=== PATIENT | female | born 1960 | race Caucasian/White ===

== ENCOUNTER 2019-09-09 13:03 | Outpatient (CLI) | payer MEDICARE, SELFPAY ==
--- NOTE | 2019-09-09 13:14 | MR_ITS ---
WS: [id number] MRI LUMBAR SPINE NONCONTRAST TECHNIQUE: Sagittal T1, T2 and STIR imaging. Axial T1 and T2 imaging. CLINICAL INFORMATION: LOW BACK PAIN COMPARISON: None. FINDINGS: Mild lumbar curve. No acute compression. Mild disc bulging worse L4-L5 and L5-S1. Tiny annular fissur e L5-S1. L1-L2: Normal. L2-L3: No significant disc bulging. Spinal canal and foramen are patent. Mild facet arthropathy. L3-L4: Mild annular bulging with slight narrowing of the subarticular recess bilaterally. Moderate fa cet arthropathy. Spinal canal and foramen are patent. L4-L5: Mild annular bulging with slight effacement of the ventral thecal sac. Mild central canal sten osis with narrowing of the subarticular recess bilaterally. Mild left and no significant right forami nal narrowing. Moderate facet arthropathy. L5-S1: Small left pericentral protrusion with encroachment traversing left S1 nerve root. Spinal bonnie l and foramen are patent. Mild facet arthropathy. Visualized pelvic bony structures: Normal. Paravertebral soft tissues: Normal MR/MR lumbar spine wo con* [id number] IMPRESSION: 1. Mild lumbar curve. No acute compression. No high-grade central canal stenos is. 2. Annular bulging L4-5 with mild central canal stenosis and narrowing of the left subarticular recess. Mild left foraminal narrowing at this level. 3. Tiny left pericentral protrusion L5-S1 slightly encroaches on the traversin g left S1 nerve root. 4. Mild annular bulging L3-4 with slight effacement of ventral thecal sac. 5. Moderate facet arthropathy L3-L5.
--- NOTE | 2019-09-09 13:16 | XR_ITS ---
WS: [id number] HIPS BILATERAL TECHNIQUE: 5 views bilateral hips Including pelvis CLINICAL INFORMATION: PAIN IN LEFT AND RIGHT HIP COMPARISON: June 04, 2017 FINDINGS: Mild degenerative arthritis bilateral hips with joint space narrowing. No acute fractures. Surgical c lips in the pelvis. Vascular calcification. XR/XR hip BI 3-4V wo/[place] [id number] IMPRESSION: Mild degenerative arthritis both hips. No acute fractures.
--- NOTE | 2019-09-09 13:16 | XR_ITS ---
WS: [id number] LUMBAR SPINE FLEXION AND EXTENSION TECHNIQUE: 3 views of the lumbar spine: Lateral neutral, flexion, and extension views. CLINICAL INFORMATION: LOW BACK PAIN COMPARISON: None. FINDINGS: Grade 1 anterolisthesis L5 on S1 measuring 3.5 mm. Slight anterolisthesis L4 on L5 measuring 2.2 mm. Disc space narrowing worse at L4-5. No instability on flexion-extension. Moderate facet arthropathy L 4-L5 and L5-S1. Aortic calcification. XR/XR lumbar spine f/e only [id number] IMPRESSION: 1. Grade 1 anterolisthesis L5 on S1 measuring 3.5 mm. Slight anterolisthesis L 4 on L5 measuring 2.2 mm. 2. No instability on flexion-extension.
== END 2019-09-09 13:04 | disposition home or self-care (01) ==
PROVIDERS: Family Provider Internal Medicine; PCP Internal Medicine; Visit Provider Nurse Practitioner
DX: M25.552 Pain in left hip (principal); M25.551 Pain in right hip; M16.0 Bilateral primary osteoarthritis of hip; M48.061 Spinal stenosis, lumbar region without neurogenic claudication; M51.27 Other intervertebral disc displacement, lumbosacral region; M47.816 Spondylosis without myelopathy or radiculopathy, lumbar region
CPT/HCPCS: 72120; 72148; 73522

== ENCOUNTER 2019-11-12 14:51 | Outpatient (CLI) | payer MEDICARE, SELFPAY ==
--- NOTE | 2019-11-12 | XR_ITS ---
WS: [id number] Left hip, AP and frog leg, 11/12/2019 Clinical Data: PAIN LEFT HIP Comparison: Bilateral hips, 09/09/2019. Findings: No fractures or dislocations are seen. The hip joint is intact. The soft tissues are not remarkable. The adjacent pelvis is normal. No erosion, sclerosis or significant narrowing of the left hip is seen. There are clips from pelvic s urgery present. XR/XR hip LT 2-3V wo/w pel* [id number] Impression: Negative left hip.
== END 2019-11-12 14:52 | disposition home or self-care (01) ==
LOC: RADWPI 14:55
PROVIDERS: Family Provider Internal Medicine; PCP Internal Medicine; Visit Provider Anesthesiology Pain Medicine
DX: M25.552 Pain in left hip (principal)
CPT/HCPCS: 73502

== ENCOUNTER 2019-12-28 11:58 | Outpatient (CLI) | payer MEDICARE, SELFPAY ==
--- NOTE | 2019-12-28 12:10 | MM_ITS ---
WS: [id number] BILATERAL SCREENING DIGITAL MAMMOGRAM WITH CAD HISTORY: SCREENING COMPARISON: 11/07/2018 and 10/22/2017 Bilateral CC and MLO views submitted. Computer aided detection analyzed. Breast composition: There are scattered areas of fibroglandular density. No suspicious masses, microc alcifications or architectural distortion. Benign calcifications. No change in the overall parenchyma l pattern. MM/[place] [id number] IMPRESSION: BI-RADS: 2-Benign FOLLOW UP: 1 Year Follow-up
== END 2019-12-28 11:59 | disposition home or self-care (01) ==
LOC: RADSHAW 12:04
PROVIDERS: PCP Internal Medicine; Visit Provider Internal Medicine
DX: Z12.31 Encounter for screening mammogram for malignant neoplasm of breast (principal)
CPT/HCPCS: 77067

== ENCOUNTER → 2020-09-22 14:02 | Outpatient (BNVA) | payer MEDICARE, SELFPAY | PROVIDERS: PCP Internal Medicine; Visit Provider Internal Medicine | DX: M19.90 Unspecified osteoarthritis, unspecified site (principal); L40.9 Psoriasis, unspecified; M20.11 Hallux valgus (acquired), right foot; Z87.891 Personal history of nicotine dependence | CPT/HCPCS: 99203; 99204 ==

== ENCOUNTER 2020-09-26 13:35 | Outpatient (CLI) | payer MEDICARE, SELFPAY ==
--- NOTE | 2020-09-26 13:46 | XRR_ITS ---
PROCEDURE INFORMATION: Exam: XR Bilateral Sacroiliac Joints Exam date and time: 09/26/2020 1:46 PM Age: 60 years old Clinical indication: Pain and condition or disease; Other: Unspecified osteoarthritis, poriasis; Pain in coccyx area; Additional info: L40.9 - psoriasis, unspecified TECHNIQUE: Imaging protocol: XR Bilateral XR of the sacroiliac joints. Views: AP inlet, bilateral oblique; 3 views. COMPARISON: CR XR hip LT 2-3V wo/w pel* [id number] 11/12/2019 3:05 PM FINDINGS: Bones/joints: Normal. No acute fracture. Soft tissues: Normal. Gastrointestinal tract: Bilateral lower pelvic bowel surgical clips. XR/XR sacroiliac jts m 3V [id number] IMPRESSION: No acute findings.
--- NOTE | 2020-09-26 13:46 | XRR_ITS ---
PROCEDURE INFORMATION: Exam: XR Right Hand Exam date and time: 09/26/2020 1:46 PM Age: 60 years old Clinical indication: Pain and condition or disease; Osteoarthritis; Hand; Bilateral; Additional info: M19.90 - unspecified osteoarthritis, unspecified site TECHNIQUE: Imaging protocol: XR Right hand. Views: Frontal and lateral, 2 views. COMPARISON: No relevant prior studies available. FINDINGS: Bones/joints: Normal. Soft tissues: Normal. XR/XR hand RT 2V [id number] IMPRESSION: No acute findings.
--- NOTE | 2020-09-26 13:46 | XRR_ITS ---
PROCEDURE INFORMATION: Exam: XR Lumbosacral Spine Exam date and time: 09/26/2020 1:46 PM Age: 60 years old Clinical indication: Pain and condition or disease; Other: Unspecified osteoarthritis; Low back pain; Additional info: M19.90 - unspecified osteoarthritis, unspecified site TECHNIQUE: Imaging protocol: XR of the lumbosacral spine. Views: 3 views. Other technique: AP, lateral and spot lateral views of the lumbar spine are submitted. COMPARISON: CR XR lumbar spine f/e only [id number] 09/09/2019 2:04 PM FINDINGS: Bones/joints: Severe left L4-L5 disc height loss, endplate sclerosis. Slight L4-L5 anterolisthesis. Bilateral L4-L5 and L5-S1, right L3-L4 lumbar facet primary osteoarthritis. Moderate L4-L5 disc height loss, 2.2 mm anterolisthesis. Slight leftward lumbar spinal curvature. Soft tissues: Bilateral lower pelvic bowel surgical clips. Vasculature: Moderate aortic and bilateral iliac artery atherosclerotic calcifications without evidence of aneurysm. XR/XR lumbar spine 2-3V* [id number] IMPRESSION: 1. Degenerative changes as above. 2. No acute lumbar spinal bony abnormality identified.
--- NOTE | 2020-09-26 13:46 | XRR_ITS ---
PROCEDURE INFORMATION: Exam: XR Left Hand Exam date and time: 09/26/2020 1:46 PM Age: 60 years old Clinical indication: Pain and condition or disease; Osteoarthritis; Hand; Bilateral; Prior surgery; Surgery type: Lt thumb trigger finger; Additional info: M19.90 - unspecified osteoarthritis, unspecified site TECHNIQUE: Imaging protocol: XR Left hand. Views: Frontal and lateral, 2 views. COMPARISON: No relevant prior studies available. FINDINGS: Bones/joints: Normal. Soft tissues: Normal. XR/XR hand LT 2V [id number] IMPRESSION: No acute findings.
[2020-09-26 14:21] LABS: Basophils # 0.1 10^3/uL (0.0-0.1); Basophils % 0.8 %; Eosinophils # 0.1 10^3/uL (0.0-0.8); Eosinophils % 0.9 %; Hematocrit 38.2 % (37.0-47.0); Hemoglobin 12.8 g/dL (11.5-15.3); Lymphocytes # 1.3 10^3/uL (0.8-4.8); Lymphocytes % 16.8 %; Mean Corpuscular HGB Conc 33.5 g/dL (30.0-36.0); Mean Corpuscular Volume 92.5 fL (81-99); Monocytes # 0.2 10^3/uL (0.2-0.9); Monocytes % 2.9 %; Neutrophils # 6.16 10^3/uL (1.8-7.7); Neutrophils % 78.3 %; Nucleated Red Blood Cells % 0 %; Platelet Count 218 10^3/cmm (130-400); Red Blood Count 4.13 10^6/uL (4.1-5.3); Red Cell Distribution Width 12.9 % (12.1-15.1); White Blood Count 7.9 10^3/uL (4.0-10.0)
[2020-09-26 14:39] LABS: Alanine Aminotransferase 9 U/L (0-33); Albumin Level 4.2 g/dL (3.5-5.2); Alkaline Phosphatase 69 IU/L (35-105); Anion Gap 14.6 (5-19); Aspartate Amino Transferase 13 U/L (0-32); Blood Urea Nitrogen 8 mg/dL (8-23); C Reactive Protein 1.5 mg/L (0.0-4.9); Calcium 8.9 mg/dL (8.5-10.5); Carbon Dioxide 26 mmol/L (22-29); Chloride 92 mmol/L (98-107); Globulin 1.9 g/dL (1.3-4.6); Glomerular Filtration Rate 85.1 mL/min (90-130); Glucose 275 mg/dL (65-115); Osmolality Calculated 274 mOsm/kg (285-295); Potassium 4.6 mmol/L (3.5-5.1); Sodium 128 mmol/L (136-145); Total Bilirubin 0.3 mg/dL (0.15-1.2); Total Protein 6.1 g/dL (6.6-8.7); Uric Acid 1.6 mg/dL (2.4-5.7)
[2020-09-26 14:57] LABS: Ferritin 31 ng/mL (15-150)
[2020-09-26 14:59] LABS: Rheumatoid Factor < 10.0 IU/mL (0-14)
[2020-09-26 15:00] LABS: Erythrocyte Sedimentation Rate 12 mm/hr (0-15)
[2020-09-26 16:12] LABS: Hepatitis B Core AB, Total Non-Reactive (Nonreactive); Hepatitis B Surface Antigen Non-Reactive (Nonreactive); Hepatitis C Virus Antibody Non-Reactive (Nonreactive)
[2020-09-27 14:36] LABS: Cyclic Citrullinated Peptide <16 UNITS
== END 2020-09-26 13:36 | disposition home or self-care (01) ==
PROVIDERS: PCP Internal Medicine; Visit Provider Internal Medicine
DX: M19.90 Unspecified osteoarthritis, unspecified site (principal); L40.9 Psoriasis, unspecified; Z11.59 Encounter for screening for other viral diseases
CPT/HCPCS: 36415; 72100; 72202; 73120; 80053; 82728; 84550; 85025; 85651; 86140; 86431; 86704; 86803; 87340

== ENCOUNTER 2020-10-26 13:28 | Outpatient (CLI) | payer MEDICARE, SELFPAY ==
--- NOTE | 2020-10-26 13:32 | MR_ITS ---
WS: [id number] MR OF THE RIGHT FOOT WITHOUT GADOLINIUM ENHANCEMENT. INDICATION: Chronic right foot pain TECHNIQUE: Sagittal PD, sagittal T1, and sagittal STIR imaging. Axial T1 STIR and PD imaging. Axial T 2 imaging. Coronal PD and T2 imaging. FINDINGS: Normal ankle mortise. Normal medial and lateral malleolus. No acute avulsion fractures. Nor mal talar dome. No evidence of avascular necrosis. Normal talocalcaneal articulation. Tiny plantar ca lcaneal spur. Normal plantar aponeurosis. Mild degenerative edema at the sinus tarsi. Normal cuboid. Base of fifth metatarsal is normal. Degenerative arthritis at the navicular and tarsal bones. Subchon dral cystic change involving the tarsal bones. Mild degenerative arthritis at the TMT joints. Degener ative arthritis at the first MTP joint with subchondral cystic change and mild bunion deformity. Distal Achilles is normal in appearance. Normal peroneal longus and brevis. Normal extensor and flexo r compartment tendons. Tenosynovitis involving the flexor digitorum longus and flexor hallucis longus . MR/MR foot RT wo con* [id number] IMPRESSION: 1. Normal ankle mortise. Normal talar dome. No avascular necrosis. 2. Normal distal Achilles. Tiny plantar calcaneal spur. 3. Mild bunion deformity with degenerative subchondral cystic change first MTP . 4. Moderate degenerative arthritis with subchondral edema and cystic change in volving the tarsal bones 5. Normal peroneal longus and brevis. 6. Tenosynovitis involving the flexor compartment tendons described above. 7. Normal plantar aponeurosis with tiny plantar calcaneal spur.
== END 2020-10-26 13:29 | disposition home or self-care (01) ==
LOC: RADSHAW 13:30
PROVIDERS: PCP Internal Medicine; Visit Provider Internal Medicine
DX: M19.90 Unspecified osteoarthritis, unspecified site (principal)
CPT/HCPCS: 73718

== ENCOUNTER 2021-03-27 10:16 | Outpatient (CLI) | payer MEDICARE, SELFPAY ==
--- NOTE | 2021-03-27 10:40 | MM_ITS ---
WS: [id number] Bilateral screening digital mammogram, 03/27/2021 Clinical Data: SCREEN Comparison: 12/28/2019, 11/07/2018, 10/22/2017, 08/23/2016, 08/22/2015, 08/18/2014. Findings: The breast parenchymal pattern shows fibroglandular tissue No spiculated masses or clustered calcific ations are seen. There are no secondary signs of carcinoma. There is a mole marker on the left breast . There are lymph nodes in both axilla. MM/[place] [id number] Impression: 1. Negative bilateral mammogram unchanged. 2. Recommend annual screening mammograms. BIRADS: 1-Negative FOLLOW UP: 1 Year Follow-up The CAD dead mail checker was used.
== END 2021-03-27 10:17 | disposition home or self-care (01) ==
LOC: RADSHAW 10:20
PROVIDERS: PCP Internal Medicine; Visit Provider Internal Medicine
DX: Z12.31 Encounter for screening mammogram for malignant neoplasm of breast (principal)
CPT/HCPCS: 77067

== ENCOUNTER → 2021-08-15 09:26 | Outpatient (BNVA) | payer MEDICARE, SELFPAY | PROVIDERS: PCP Internal Medicine; Visit Provider Podiatrist Foot & Ankle Surgery | DX: M21.41 Flat foot [pes planus] (acquired), right foot (principal); M21.42 Flat foot [pes planus] (acquired), left foot; M21.619 Bunion of unspecified foot; M20.41 Other hammer toe(s) (acquired), right foot; M20.42 Other hammer toe(s) (acquired), left foot; L60.3 Nail dystrophy; E11.42 Type 2 diabetes mellitus with diabetic polyneuropathy | CPT/HCPCS: 99214 ==

== ENCOUNTER 2021-08-29 09:10 | Outpatient (CLI) | payer MEDICARE, SELFPAY ==
--- NOTE | 2021-08-29 09:31 | MR_ITS ---
WS: [id number] MRI LEFT KNEE NONCONTRAST TECHNIQUE: Axial PD, coronal PD fat sat, coronal PD, sagittal PD, and sagittal PD fat-sat images obta ined. CLINICAL INFORMATION: DERANGEMENT L KNEE INTERNAL COMPARISON: None. FINDINGS: Distal quadriceps and patella tendons are intact. Hypertrophic patella. Normal ACL and PCL. Moderate tricompartmental arthritis. Normal lateral meniscus. Normal medial meniscus. Mild chronic thinning of the meniscus. No acute appearing meniscal tears. Subchondral cystic change along the dorsal intercondylar notch in the tibia near the PCL insertion. N ormal bone marrow signal in the tibial plateau and femoral condyles. Normal medial and lateral collat eral ligaments. Normal popliteus. Advanced chondromalacia patella. Subchondral edema. Chondromalacia worse involving the medial patella facet. Normal medial and lateral collateral ligaments. Normal popl iteal fossa. Small suprapatellar effusion. MR/MR knee LT wo con* [id number] IMPRESSION: 1. Normal ACL and PCL. 2. Moderate tricompartmental arthritis with chondromalacia worse involving the lateral joint compartment and patella. 3. Subchondral cystic change involving the ACL insertion on the tibia. 4. Mild chronic thinning of the medial and lateral meniscus. No acute appearin g meniscal tears. 5. Normal medial and lateral collateral ligaments. 6. Advanced chondromalacia patella with subchondral edema. This is worse invol ving the medial patella facet. Outbridge grading: grade III: partial-thickness cartilage loss with focal ulcer ation
== END 2021-08-29 09:11 | disposition home or self-care (01) ==
PROVIDERS: PCP Internal Medicine; Visit Provider Internal Medicine
DX: M23.92 Unspecified internal derangement of left knee (principal)
CPT/HCPCS: 73721

== ENCOUNTER → 2021-09-21 09:04 | Outpatient (BNVA) | payer MEDICARE, SELFPAY | PROVIDERS: PCP Internal Medicine; Visit Provider Podiatrist Foot & Ankle Surgery | DX: E11.42 Type 2 diabetes mellitus with diabetic polyneuropathy (principal); L60.3 Nail dystrophy; L60.0 Ingrowing nail; M79.671 Pain in right foot; M79.672 Pain in left foot; L60.8 Other nail disorders | CPT/HCPCS: 99214 ==

== ENCOUNTER → 2022-01-31 13:57 | Outpatient (BNVA) | payer MEDICARE, SELFPAY | PROVIDERS: PCP Internal Medicine; Visit Provider Internal Medicine | DX: M19.90 Unspecified osteoarthritis, unspecified site (principal); E11.42 Type 2 diabetes mellitus with diabetic polyneuropathy; Z79.4 Long term (current) use of insulin | CPT/HCPCS: 20610; 99213; J3301 ==

== ENCOUNTER 2022-06-04 15:15 | Outpatient (CLI) | payer MEDICARE, SELFPAY ==
[2022-06-04 15:43] LABS: Basophils # 0.1 10^3/uL (0.0-0.1); Basophils % 0.8 %; Eosinophils # 0.4 10^3/uL (0.0-0.8); Eosinophils % 5.1 %; Hematocrit 36.1 % (37.0-47.0); Hemoglobin 12.1 g/dL (11.5-15.3); Lymphocytes # 2.1 10^3/uL (0.8-4.8); Lymphocytes % 23.6 %; Mean Corpuscular HGB Conc 33.5 g/dL (30.0-36.0); Mean Corpuscular Hemoglobin 31.5 pg (28.0-34.0); Mean Platelet Volume 11.4 fL (7.4-10.4); Monocytes # 0.4 10^3/uL (0.2-0.9); Monocytes % 4.6 %; Neutrophils # 5.72 10^3/uL (1.8-7.7); Neutrophils % 65.7 %; Nucleated Red Blood Cells % 0 %; Platelet Count 231 10^3/cmm (130-400); Red Blood Count 3.84 10^6/uL (4.1-5.3); Red Cell Distribution Width 13.3 % (12.1-15.1); White Blood Count 8.7 10^3/uL (4.0-10.0)
[2022-06-04 15:58] LABS: Alanine Aminotransferase 9 U/L (0-33); Albumin Level 3.8 g/dL (3.5-5.2); Alkaline Phosphatase 58 U/L (35-105); Anion Gap 13.5 (5-19); Aspartate Amino Transferase 16 U/L (0-32); Blood Urea Nitrogen 7 mg/dL (8-23); Calcium 8.4 mg/dL (8.5-10.5); Carbon Dioxide 28 mmol/L (22-29); Chloride 94 mmol/L (98-107); Globulin 1.9 g/dL (1.3-4.6); Glomerular Filtration Rate 101.3 mL/min (90-130); Glucose 78 mg/dL (65-115); Osmolality Calculated 269 mOsm/kg (285-295); Potassium 4.5 mmol/L (3.5-5.1); Sodium 131 mmol/L (136-145); Total Bilirubin 0.2 mg/dL (0.15-1.2); Total Protein 5.7 g/dL (6.6-8.7)
[2022-06-04 15:59] LABS: Erythrocyte Sedimentation Rate 5 mm/hr (0-15)
== END 2022-06-04 15:16 | disposition home or self-care (01) ==
LOC: LAB 15:18
PROVIDERS: PCP Internal Medicine; Visit Provider Internal Medicine
DX: E11.42 Type 2 diabetes mellitus with diabetic polyneuropathy (principal); M19.90 Unspecified osteoarthritis, unspecified site
CPT/HCPCS: 36415; 80053; 85025; 85651; 86140

== ENCOUNTER → 2022-07-11 15:04 | Outpatient (BNVA) | payer MEDICARE, SELFPAY | PROVIDERS: PCP Internal Medicine; Visit Provider Internal Medicine | DX: M47.816 Spondylosis without myelopathy or radiculopathy, lumbar region (principal); M19.041 Primary osteoarthritis, right hand; E11.42 Type 2 diabetes mellitus with diabetic polyneuropathy; Z79.4 Long term (current) use of insulin | CPT/HCPCS: 72100; 73120; 99214 ==

== ENCOUNTER → 2022-07-13 10:51 | Outpatient (BNVA) | payer MEDICARE, SELFPAY | PROVIDERS: PCP Internal Medicine; Visit Provider Internal Medicine | DX: M25.50 Pain in unspecified joint (principal) | CPT/HCPCS: 20600; 20605; J1030; J3301 ==